=== PATIENT | male | born 1970 | race Caucasian/White ===

== ENCOUNTER 2023-10-16 00:10 | Day surgery (SDC) | payer OTHER, SELFPAY ==
[2023-10-03 09:51] VITALS: BMI 40.4
--- NOTE | 2023-10-12 09:41 | SUR.PREOP ---
Patient called regarding upcoming procedure. Reviewed preop instructions, new appointment times, and procedure prep.
--- NOTE | 2023-10-13 10:23 | SUR.PREOP ---
Patient called regarding upcoming procedure. left message with time and date of procedure and contact for questions.
[2023-10-16 07:48] VITALS: BP 143/88; PULSE 94; RESP 18; TEMP 36.1; O2SAT 97
[2023-10-16] MEDS: LACTATED RINGERS 1,000 ML 150 ML IV CONT (07:55)
--- NOTE | 2023-10-16 08:51 | P.PNAN_ITS ---
Anes - Initial Pre Proc Eval Procedure: Operation Date: 10/16/23 09:00 Proposed Procedures p Screening Colonoscopy - Raudel Munoz MD Date/Time: 10/16/23 08:51 Surgeon: Raudel Munoz MD Pre Op Diagnosis: neoplasm screening Patient Data Age: 53 Gender: M Height: 1.83 m Weight: 135.1 kg Last Vital Signs Temp 97 F L 10/16/23 07:48 Pulse 94 10/16/23 07:48 Resp 18 10/16/23 07:48 BP 143/88 H 10/16/23 07:48 Pulse Ox 97 10/16/23 07:48 O2 Del Method Room Air 10/16/23 07:48 Allergies Allergy/AdvReac Type Severity Reaction Status Date / Time No Known Allergies Allergy Verified 10/16/23 07:46 Home Medications Medication Instructions Recorded Confirmed Type semaglutide 0.25 mg or 0.5 mg (2 0.25 mg (0.368 mL) subcut WEEKLY 08/28/23 10/03/23 Rx mg/3 mL) subcutaneous pen injector #3 mL (Ozempic) trazodone 50 mg tablet 50 mg PO QHS #90 tabs 08/28/23 10/03/23 Rx Patient hx anesthesia problems: none Family hx anesthesia problems: none Results Review: All pre-operative results and documents have been reviewed as part of the pre- operative evaluation. [facility] Past Medical History Medical History Pacemaker Family History Family History (Updated 08/28/23 @ 11:30 by Jessica Wilkinson) Mother Alcoholism Father Alcoholism Carcinoma of colon Sibling Breast cancer Grandparent Thyroid condition Social History Social History (Updated 08/28/23 @ 11:31 by Jessica Wilkinson) Smoking status: Never smoker Alcohol intake: current Drinks per week: 3 Alcohol use details: bourbon to sleep Substance use: former Substance use type: marijuana Other substance usage details: edibles Lack of Transportation: No Lack of Food: Never True Current Housing: I Have Housing Concerned About Future Housing: No Difficulty Paying Gas/Electric Bills: No Difficulty Paying for Meds: No Currently Unemployed: No Education: High School Diploma/GED Difficulty w/ Childcare or Family Care: No Living arrangements: with family Spiritual care concerns: No Anes - Eval Final PreProcedure Day of Procedure 10/16/23 08:51 Patient weight: morbidly obese Heart: regular rate and rhythm Lungs: clear to auscultation Airway: Mallampati scale class II Neurological: alert and oriented Last oral intake: >/= 8 hours ASA classification: III Emergent: no Anesthetic plan: proceed Anesthesia type and monitoring: general GIVS and standard monitoring Results Review: All pre-operative results and documents have been reviewed as part of the pre- operative evaluation. Informed Consent: The patient's anesthetic plan and its attendant risks and benefits were discussed with the patient/family/POA. Questions were solicited and answers provided to the satisfaction of the patient/family/POA.
--- NOTE | 2023-10-16 09:07 | PM.HPGS ---
History of Present Illness History of Present Illness Consent: Risks, benefits, and alternatives have been discussed and questions answered. Patient agrees to proceed with procedure. Chief complaint: neoplasm screening Narrative: Wade Foster is a 53 year old male here for first screening colonoscopy Review of Systems Constitutional: Constitutional: Denies headache(s) and Denies weakness Eyes: Eyes: Denies blurry vision ENT: Reports Normal hearing present, Denies headache(s) and Denies neck pain Cardiovascular: Cardiovascular: Denies chest pain and Denies dyspnea Respiratory: Respiratory: Denies dyspnea Gastrointestinal: Gastrointestinal: Reports no additional gastrointestinal complaints Genitourinary: Genitourinary: Denies dysuria Musculoskeletal: Musculoskeletal: Denies neck pain Integumentary/Breasts: Skin/Breast: Denies dry skin Neurologic: Reports Normal hearing present, Denies headache(s) and Denies weakness Psychiatric: Psychiatric: Denies anxiety Endocrine: Endocrine: Denies change in body appearance Hematologic/Lymphatic: Hematologic/Lymphatic: Denies easy bleeding Allergic/Immunologic: Allergic/Immunologic: Denies urticaria PMFSH Past Medical History Medical History Pacemaker Family History Family History (Updated 08/28/23 @ 11:30 by Jessica Wilkinson) Mother Alcoholism Father Alcoholism Carcinoma of colon Sibling Breast cancer Grandparent Thyroid condition Social History Social History (Updated 08/28/23 @ 11:31 by Jessica Wilkinson) Smoking status: Never smoker Alcohol intake: current Drinks per week: 3 Alcohol use details: bourbon to sleep Substance use: former Substance use type: marijuana Other substance usage details: edibles Lack of Transportation: No Lack of Food: Never True Current Housing: I Have Housing Concerned About Future Housing: No Difficulty Paying Gas/Electric Bills: No Difficulty Paying for Meds: No Currently Unemployed: No Education: High School Diploma/GED Difficulty w/ Childcare or Family Care: No Living arrangements: with family Spiritual care concerns: No Meds Home Medications and Allergies Home Medications Medication Instructions Recorded Confirmed Type semaglutide 0.25 mg or 0.5 mg (2 0.25 mg (0.368 mL) subcut WEEKLY 08/28/23 10/03/23 Rx mg/3 mL) subcutaneous pen injector #3 mL (Ozempic) trazodone 50 mg tablet 50 mg PO QHS #90 tabs 08/28/23 10/03/23 Rx Allergies Allergy/AdvReac Type Severity Reaction Status Date / Time No Known Allergies Allergy Verified 10/16/23 07:46 Vital Signs Vital Signs - 24 hr 10/16/23 07:48 Temperature 97 F L Pulse Rate 94 Respiratory Rate 18 Blood Pressure 143/88 H Pulse Oximetry 97 Oxygen Delivery Room Air Exam Const: General: comfortable and no acute distress HENMT: Face/Nose/Sinus: Normal nares present Eyes: General: appearance normal, both eyes and all related structures Neck: Neck: no JVD Resp: Auscultation: clear to auscultation bilaterally Cardio: Rate: regular rate Rhythm: regular rhythm GI: Inspection: non-distended GI Palp: Yes Soft to palpation Skin: General skin exam: normal color Neuro: General: gait normal Speech: normal speech Extrem: General: normal to inspection Psych: Mental Status: mental status grossly normal Assessment and Plan Assessment and plan (1) Colon cancer screening: Code(s): Z12.11 - Encounter for screening for malignant neoplasm of colon Status: Acute Assessment and Plan: colonoscopy
[2023-10-16 09:24] VITALS: BP 115/68; PULSE 67; RESP 18; O2SAT 97
[2023-10-16 09:34] VITALS: BP 131/78; PULSE 60; RESP 18; O2SAT 98
[2023-10-16 09:44] VITALS: BP 140/78; PULSE 60; RESP 18; O2SAT 98
== END 2023-10-16 09:57 | disposition home or self-care (01) ==
PROVIDERS: Visit Provider Internal Medicine Gastroenterology
PROC: 0DJD8ZZ Inspection of Lower Intestinal Tract, Via Natural or Artificial Opening Endoscopic (ICD-10-PCS; CPT 45378; principal; 2023-10-16 09:00)
DX: Z12.11 Encounter for screening for malignant neoplasm of colon (principal); K64.8 Other hemorrhoids; K57.30 Diverticulosis of large intestine without perforation or abscess without bleeding; F12.90 Cannabis use, unspecified, uncomplicated; E66.01 Morbid (severe) obesity due to excess calories; Z68.41 Body mass index [BMI] 40.0-44.9, adult; Z95.0 Presence of cardiac pacemaker; Z80.3 Family history of malignant neoplasm of breast; Z80.0 Family history of malignant neoplasm of digestive organs
CPT/HCPCS: 45378; J2704; J7120

== ENCOUNTER 2024-10-24 16:44 | Emergency (ER) | payer BC, SELFPAY ==
[2024-10-24] VITALS (7 sets, daily range): BP systolic 138–173; BP diastolic 76–94; PULSE 61–73; RESP 13–16; TEMP 36.5; O2SAT 96–100
--- NOTE | ~2024-10-24 | XR_ITS ---
EXAMINATION: XR chest 2V 10/24/2024 17:28 INDICATION: Chest pain PROCEDURE: 2 view chest COMPARISON: No prior studies for comparison. FINDINGS: The lungs are clear. The cardiomediastinal silhouette is within normal limits. There are no pleural effusions. There is no pneumothorax suspected. Bipolar pacemaker leads in expected posit ion. IMPRESSION: 1: NO ACUTE CARDIOPULMONARY DISEASE. Reviewed, dictated and finalized at location A. ELLER MECHANIC
--- NOTE | ~2024-10-24 | CT_ITS ---
EXAMINATION: CT chest abdomen pelvis w con DATE: 10/24/2024 21:14 BOW MAKER GIFT WRAPPING INDICATION: Pancreatitis TECHNIQUE: Computed tomography (CT) of the chest, abdomen, and pelvis was performed with 100 cc Omnip aque 350 intravenous contrast. The dose-length product was 2071.80 mGy-cm. COMPARISON: None FINDINGS: CHEST CT: Heart size normal. No thoracic lymphadenopathy. No evidence for aortic aneurysm or dissection. Fatty infiltration of the liver. No endobronchial lesions. Dependent atelectasis. No suspicious pulmonary n odules or masses. No focal airspace consolidation. ABDOMEN/PELVIS CT: Fatty infiltration of the liver. The spleen, pancreas, adrenal glands are unremarkable. There are al ateral renal cysts, largest in the lower pole of the left kidney measuring 9.5 cm. Nonobstructive bow el gas pattern. Normal appendix. No lymphadenopathy. No significant vascular abnormality. No abnormal pelvic masses or fluid collections. Gallbladder is present. IMPRESSION: 1. No acute abnormality of the chest, abdomen or pelvis. Reviewed, dictated and finalized at location A. MAKER GIFT WRAPPING
--- NOTE | 2024-10-24 16:45 | ECG_ITS ---
Test Date: 2024-10-24 19:46:42 Measurements Intervals [place] Rate: 65 P: 0 AR: 0 QRS: -30 QRSD: 148 T: -13 QT: 457 QTc: 475 Interpretive Statements SINUS RHYTHM RIGHT BUNDLE BRANCH BLOCK [120+ ms QRS DURATION, UPRIGHT V1, 40+ ms S IN I/aVL/V4/V5/V6] VOLTAGE CRITERIA FOR LVH [MEETS CRITERIA IN ONE OF: R(aVL), S(V1), R(V5), R(V5/V6)+S(V1)] POSSIBLE SEPTAL MYOCARDIAL INFARCTION , OF INDETERMINATE AGE [30 ms Q WAVE IN V1/V2] Compared to ECG 10/24/2024 16:51:53 NO SIGNIFICANT CHANGES Electronically Signed On 10-25-2024 14:34:12 BRANCH OFFICER by Marshall Flores M.D.
[2024-10-24 17:11] LABS: Basophils Percent Auto 0.3 % (0.2-1.2); Eosinophils Absolute Auto 0.1 K/mm3 (0-0.3); Eosinophils Percent Auto 1.1 % (0-4.4); Hematocrit 49.6 % (42.0-52.0); Hemoglobin 16.3 g/dL (14.0-18.0); Immature Granulocyte Absolute 0.03 K/mm3 (0.00-0.031); Immature Granulocyte Percent A 0.3 % (0-0.5); Lymphocytes Absolute Auto 2.01 K/mm3 (0.9-3.2); Lymphocytes Percent Auto 22.6 % (18.3-44.2); Mean Corpuscular HGB Conc 32.9 g/dl (32-36); Mean Corpuscular Hemoglobin 28.1 pg (26-34); Mean Corpuscular Volume 85.5 fl (80-100); Mean Platelet Volume 10.2 fl (7.4-10.4); Monocytes Absolute Auto 0.5 K/mm3 (0.1-0.6); Neutrophils Absolute Auto 6.2 K/mm3 (1.3-6.7); Neutrophils Percent Auto 69.7 % (45.5-73.1); Platelet Count Result 260 k/mm3 (150-375); Red Cell Distribution Width 13.4 % (11.5-14.5); White Blood Count 8.9 K/mm3 (4.5-10.0)
--- NOTE | 2024-10-24 17:12 | ED_ITS ---
HPI - Chest Pain General Chief Complaint: Chest Pain <Lois Neville APRN - Last Filed: 10/24/24 17:15> Stated Complaint: CHEST PAIN <Lois Neville APRN - Last Filed: 10/24/24 17:15> Time Seen by Provider: 10/24/24 17:10 <Lois Neville APRN - Last Filed: 10/24/24 17:15> Focused HPI: Patient is a 54-year-old male who presents to the ER with chest pressure. He endorses lightheadedness, left hand numbness, and memory issues that started around 8:00 a.m. this morning. Patient endorses a history of a bicuspid aortic valve, depression and pacemaker. He denies any shortness of breath, abdominal pain, urinary symptoms. Patient reports he has a history of bilateral lower extremity edema. GENERAL: Well-appearing, obese, and in mild distress d/t anxiety. HEAD: Normocephalic, atraumatic. CHEST: Clear to auscultation. ?No respiratory distress. HEART: Regular rate and rhythm.? NEURO: ?Alert and oriented x3. Patient screened in triage and initial orders placed.? ?Additional care and disposition to be based upon?diagnostic testing and treatment. <Lois Neville APRN - Last Filed: 10/24/24 17:15> Source: patient <Wesley Cohen MD - Last Filed: 10/24/24 21:37> Mode of arrival: ambulatory <Wesley Cohen MD - Last Filed: 10/24/24 21:37> History of Present Illness HPI narrative: year old with a history of bicuspid aortic valve status post pacemaker secondary to possible sick sinus syndrome here with the complaints of cough chest pain bilateral arm tingling, memory fog since this a.m. patient states that felt sluggish all day. No previous history of CAD or CVA. He denies any cough or shortness of breath or abdominal pain. <Wesley Cohen MD - Last Filed: 10/24/24 21:37> MD complaint: chest pain <Wesley Cohen MD - Last Filed: 10/24/24 21:37> Onset (ago): day(s) (1) <Wesley Cohen MD - Last Filed: 10/24/24 21:37> Timing of current episode: constant <Wesley Cohen MD - Last Filed: 10/24/24 21:37> Onset: during rest <Wesley Cohen MD - Last Filed: 10/24/24 21:37> Pain radiation: other (Bilateral arm tingling) <Wesley Cohen MD - Last Filed: 10/24/24 21:37> Severity: mild <Wesley Cohen MD - Last Filed: 10/24/24 21:37> Quality: heaviness <Wesley Cohen MD - Last Filed: 10/24/24 21:37> Relieving factors: nothing <Wesley Cohen MD - Last Filed: 10/24/24 21:37> Treatment prior to arrival: none <Wesley Cohen MD - Last Filed: 10/24/24 21:37> Related Data Allergies/Adverse Reactions: Allergies Allergy/AdvReac Type Severity Reaction Status Date / Time No Known Allergies Allergy Verified 10/24/24 16:44 <Lois Neville, TONG - Last Filed: 10/24/24 17:15> Review of Systems 2 Review of Systems: All systems reviewed & are unremarkable except as noted in HPI and below <Wesley Cohen MD - Last Filed: 10/24/24 21:37> Constitutional: Constitutional: Reports no additional constitutional complaints <Wesley Cohen MD - Last Filed: 10/24/24 21:37> Eyes: Eyes: Reports no additional eye complaints <Wesley Cohen MD - Last Filed: 10/24/24 21:37> ENT: Reports system reviewed and no additional complaints, except as documented <Wesley Cohen MD - Last Filed: 10/24/24 21:37> Cardiovascular: Cardiovascular: Reports no additional cardiovascular complaints <Wesley Cohen MD - Last Filed: 10/24/24 21:37> Respiratory: Respiratory: Reports no additional respiratory complaints < Wesley Cohen MD - Last Filed: 10/24/24 21:37> Gastrointestinal: Gastrointestinal: Reports no additional gastrointestinal complaints <Wesley Cohen MD - Last Filed: 10/24/24 21:37> Musculoskeletal: Musculoskeletal: Reports no additional musculoskeletal complaints <Wesley Cohen MD - Last Filed: 10/24/24 21:37> Neurologic: Reports system reviewed and no additional complaints, except as documented <Wesley Cohen MD - Last Filed: 10/24/24 21:37> PMFSH Past Medical History Medical History: Medical History Pacemaker <Lois Neville APRN - Last Filed: 10/24/24 17:15> Family History Family History: Family History (Updated 08/28/23 @ 11:30 by Jessica Wilkinson) Mother Alcoholism Father Alcoholism Carcinoma of colon Sibling Breast cancer Grandparent Thyroid condition <Lois Neville APRN - Last Filed: 10/24/24 17:15> Social History Social History: Social History (Updated 08/28/23 @ 11:31 by Jessica Wilkinson) Smoking status: Never smoker Alcohol intake: current Drinks per week: 3 Alcohol use details: bourbon to sleep Substance use: former Substance use type: marijuana Other substance usage details: edibles Lack of Transportation: No Lack of Food: Never True Current Housing: I Have Housing Concerned About Future Housing: No Difficulty Paying Gas/Electric Bills: No Difficulty Paying for Meds: No Currently Unemployed: No Education: High School Diploma/GED Difficulty w/ Childcare or Family Care: No Living arrangements: with family Spiritual care concerns: No <Lois Neville APRN - Last Filed: 10/24/24 17:15> Exam 2 Narrative: GENERAL: Well-appearing, well-nourished, and in no acute distress. HEAD: Normocephalic, atraumatic. EYES: PERRLA and EOMI. ENT: Nares clear, no rhinorrhea or epistaxis. Mucous membranes moist. NECK: Supple. CHEST: Clear to auscultation. No respiratory distress. HEART: Regular rate and rhythm. No murmur heard. Normal peripheral pulses. ABDOMEN: Soft, nontender, nondistended, normal active bowel sounds. EXTREMITIES: Normal range of motion. No edema. SKIN: Warm, dry, no rash. NEURO: No focal deficits. Alert and oriented x3. PSYCH: Normal mood and affect. <Wesley Cohen MD - Last Filed: 10/24/24 21:37> Course Course Emergency Course: Notified patient and his about his lab work, CT findings. He is pretty much alert and in no acute distress at this time. I did advise him to continue use of medication, follow-up with his molecular genetic pathologist with <Wesley Cohen MD - Last Filed: 10/24/24 21:37> Vital Signs Vital signs: Vital Signs Temperature 36.5 C 10/24/24 16:58 Pulse Rate 73 10/24/24 16:58 Respiratory Rate 16 10/24/24 16:58 Blood Pressure 157/87 H 10/24/24 16:58 Pulse Oximetry 96 10/24/24 16:58 Oxygen Delivery Room Air 10/24/24 16:58 Temperature 36.5 C 10/24/24 16:58 Pulse Rate 73 10/24/24 16:58 Respiratory Rate 16 10/24/24 16:58 Blood Pressure 157/87 H 10/24/24 16:58 Pulse Oximetry 98 10/24/24 18:44 Oxygen Delivery Room Air 10/24/24 18:44 <Lois Neville, REFINING MACHINE OPERATOR - Last Filed: 10/24/24 17:15> Vital Signs Temperature 36.5 C 10/24/24 16:58 Pulse Rate 73 10/24/24 16:58 Respiratory Rate 16 10/24/24 16:58 Blood Pressure 157/87 H 10/24/24 16:58 Pulse Oximetry 96 10/24/24 16:58 Oxygen Delivery Room Air 10/24/24 16:58 Temperature 36.5 C 10/24/24 16:58 Pulse Rate 73 10/24/24 16:58 Respiratory Rate 16 10/24/24 16:58 Blood Pressure 157/87 H 10/24/24 16:58 Pulse Oximetry 98 10/24/24 18:44 Oxygen Delivery Room Air 10/24/24 18:44 <Wesley Cohen MD - Last Filed: 10/24/24 21:37> MDM - Chest Pain Differential Diagnosis Differential diagnosis: Likely stable angina, atypical chest pain and chest pain <Wesley Cohen MD - Last Filed: 10/24/24 21:37> Medical Records Data Attestation: I reviewed the patient's medical records. <Wesley Cohen MD - Last Filed: 10/24/24 21:37> Lab Data Attestation: I reviewed the patient's lab results. <Wesley Cohen MD - Last Filed: 10/24/24 21:37> Result diagrams: 10/24/24 16:59 10/24/24 16:59 <Lois Neville APRN - Last Filed: 10/24/24 17:15> Labs: Lab Results 10/24/24 10/24/24 Range/Units 16:59 20:00 WBC 8.9 (4.5-10.0) K/mm3 RBC 5.80 (4.6-6.20) M/mm3 Hgb 16.3 (14.0-18.0) g/dL Hct 49.6 (42.0-52.0) % MCV 85.5 (80-100) fl MCH 28.1 (26-34) pg MCHC 32.9 (32-36) g/dl RDW 13.4 (11.5-14.5) % Plt Count 260 (150-375) k/mm3 MPV 10.2 (7.4-10.4) fl Immature Gran % (Auto) 0.3 (0-0.5) % Neut % (Auto) 69.7 (45.5-73.1) % Lymph % (Auto) 22.6 (18.3-44.2) % [place] % (Auto) 6.0 (2.6-8.5) % Eos % (Auto) 1.1 (0-4.4) % Baso % (Auto) 0.3 (0.2-1.2) % Lymph # (Auto) 2.01 (0.9-3.2) K/mm3 [place] # (Auto) 0.5 (0.1-0.6) K/mm3 Eos # (Auto) 0.1 (0-0.3) K/mm3 Baso # (Auto) 0.0 (0.0-0.1) K/mm3 Abs Immat Gran (auto) 0.03 (0.00-0.031) K/mm3 Absolute Neuts (auto) 6.2 (1.3-6.7) K/mm3 Absolute Nucleated RBC 0.000 (0.0-0.012) K/mm3 Nucleated RBC % 0.0 (0.0-0.2) % PT 14.1 (11.1-14.7) Seconds INR 1.0 APTT 27.4 (22.3-36.8) Seconds Sodium 138 (137-145) mmol/L Potassium 4.0 (3.4-5.0) mmol/L Chloride 103 (98-107) mmol/L Carbon Dioxide 26 (22-30) mmol/L Anion Gap 9 (4-12) mmol/L BUN 14 (9-20) mg/dL Creatinine 0.77 (0.7-1.3) mg/dL Estim Creat Clear Calc 131 ml/min Estimated GFR > 60 (59 - ) Glucose 89 (65-110) mg/dL Calcium 9.5 (8.4-10.2) mg/dL Total Bilirubin 1.1 (0.2-1.3) mg/dL AST 26 (17-59) U/L ALT 24 (6-50) U/L Alkaline Phosphatase 60 (38-126) U/L Troponin I < 0.012 < 0.012 (0.000-0.034) ng/mL NT-Pro-B Natriuret Pep 100 (19.9-100) pg/mL Total Protein 7.0 (6.3-8.2) g/dL Albumin 4.4 (3.5-5.1) g/dL Lipase 844 H (23-300) U/L <Lois Neville, REFINING MACHINE OPERATOR - Last Filed: 10/24/24 17:15> Lab Results 10/24/24 10/24/24 Range/Units 16:59 20:00 WBC 8.9 (4.5-10.0) K/mm3 RBC 5.80 (4.6-6.20) M/mm3 Hgb 16.3 (14.0-18.0) g/dL Hct 49.6 (42.0-52.0) % MCV 85.5 (80-100) fl MCH 28.1 (26-34) pg MCHC 32.9 (32-36) g/dl RDW 13.4 (11.5-14.5) % Plt Count 260 (150-375) k/mm3 MPV 10.2 (7.4-10.4) fl Immature Gran % (Auto) 0.3 (0-0.5) % Neut % (Auto) 69.7 (45.5-73.1) % Lymph % (Auto) 22.6 (18.3-44.2) % [place] % (Auto) 6.0 (2.6-8.5) % Eos % (Auto) 1.1 (0-4.4) % Baso % (Auto) 0.3 (0.2-1.2) % Lymph # (Auto) 2.01 (0.9-3.2) K/mm3 [place] # (Auto) 0.5 (0.1-0.6) K/mm3 Eos # (Auto) 0.1 (0-0.3) K/mm3 Baso # (Auto) 0.0 (0.0-0.1) K/mm3 Abs Immat Gran (auto) 0.03 (0.00-0.031) K/mm3 Absolute Neuts (auto) 6.2 (1.3-6.7) K/mm3 Absolute Nucleated RBC 0.000 (0.0-0.012) K/mm3 Nucleated RBC % 0.0 (0.0-0.2) % PT 14.1 (11.1-14.7) Seconds INR 1.0 APTT 27.4 (22.3-36.8) Seconds Sodium 138 (137-145) mmol/L Potassium 4.0 (3.4-5.0) mmol/L Chloride 103 (98-107) mmol/L Carbon Dioxide 26 (22-30) mmol/L Anion Gap 9 (4-12) mmol/L BUN 14 (9-20) mg/dL Creatinine 0.77 (0.7-1.3) mg/dL Estim Creat Clear Calc 131 ml/min Estimated GFR > 60 (59 - ) Glucose 89 (65-110) mg/dL Calcium 9.5 (8.4-10.2) mg/dL Total Bilirubin 1.1 (0.2-1.3) mg/dL AST 26 (17-59) U/L ALT 24 (6-50) U/L Alkaline Phosphatase 60 (38-126) U/L Troponin I < 0.012 < 0.012 (0.000-0.034) ng/mL NT-Pro-B Natriuret Pep 100 (19.9-100) pg/mL Total Protein 7.0 (6.3-8.2) g/dL Albumin 4.4 (3.5-5.1) g/dL Lipase 844 H (23-300) U/L <Wesley Cohen MD - Last Filed: 10/24/24 21:37> Imaging Data Radiologist's impression: ITS Impressions Chest X-Ray 10/24/24 17:32 IMPRESSION: 1: NO ACUTE CARDIOPULMONARY DISEASE. Chest/Abdomen/Pelvis CT 10/24/24 21:14 IMPRESSION: 1. No acute abnormality of the chest, abdomen or pelvis. <Wesley Cohen MD - Last Filed: 10/24/24 21:37> ECG Data EKG #1: ECG completion date: 10/24/24 <Wesley Cohen MD - Last Filed: 10/24/24 21:37> ECG completion time: 16:51 <Wesley Cohen MD - Last Filed: 10/24/24 21:37> EKG Interpretation: normal rate (66), sinus rhythm, no ectopy, left axis and no acute changes <Wesley Cohen MD - Last Filed: 10/24/24 21:37> EKG #2: EKG Interpretation: normal rate (65), no ectopy, normal QRS, NL axis and no acute changes <Wesley Cohen MD - Last Filed: 10/24/24 21:37> Discharge Plan Discharge Clinical Impression: Anxiety Chest pain Qualifiers: Chest pain type: unspecified Qualified Code(s): R07.9 - Chest pain, unspecified <Lois Neville APRN - Last Filed: 10/24/24 17:15> Patient Disposition: Home, Self-Care <Lois Neville APRN - Last Filed: 10/24/24 17:15> Condition: Stable <Lois Neville APRN - Last Filed: 10/24/24 17:15> Instructions: Chest Pain (ED) <Lois Neville APRN - Last Filed: 10/24/24 17:15> Additional Instructions: Continue home medications recommended to follow with the primary doctor for further evaluation <Lois Neville APRN - Last Filed: 10/24/24 17:15> Patient Language: Romanian <Lois Neville APRN - Last Filed: 10/24/24 17:15> Prescriptions: No Action Ozempic 0.25 mg or 0.5 mg (2 mg/3 mL) pen injector 0.25 mg subcut WEEKLY Qty: 3 0RF Rx Instructions: for 4 weeks trazodone 50 mg tablet 50 mg PO QHS Qty: 90 2RF <Lois Neville APRN - Last Filed: 10/24/24 17:15> Follow-up/Referrals: Goran Rob MD [Physician] - UNKNOWN,DOCTOR [Primary Care Provider] - <Lois Neville APRN - Last Filed: 10/24/24 17:15> Time of Disposition: 21:32 <Lois Neville APRN - Last Filed: 10/24/24 17:15> 21:32 <Wesley Cohen MD - Last Filed: 10/24/24 21:37> Quality HEART score for chest pain patients History: slightly suspicious <Wesley Cohen MD - Last Filed: 10/24/24 21:37> ECG: non specific repolarization disturbance/LBTB/PM <Wesley Cohen MD - Last Filed: 10/24/24 21:37> Age: > 45 and < 65 years <Wesley Cohen MD - Last Filed: 10/24/24 21:37> Risk factors: no risk factors known <Wesley Cohen MD - Last Filed: 10/24/24 21:37> Troponin: > or = to 3x normal limit <Wesley Cohen MD - Last Filed: 10/24/24 21:37> Heart score: 4 <Wesley Cohen MD - Last Filed: 10/24/24 21:37>
[2024-10-24 17:21] LABS: Partial Thromboplastin Time 27.4 Seconds (22.3-36.8); Prothrombin Time 14.1 Seconds (11.1-14.7)
[2024-10-24 17:22] LABS: Alanine Aminotransferase 24 U/L (6-50); Albumin Level 4.4 g/dL (3.5-5.1); Alkaline Phosphatase 60 U/L (38-126); Anion Gap 9 mmol/L (4-12); Aspartate Amino Transferase 26 U/L (17-59); Bilirubin,Total 1.1 mg/dL (0.2-1.3); Blood Urea Nitrogen 14 mg/dL (9-20); Calcium 9.5 mg/dL (8.4-10.2); Carbon Dioxide 26 mmol/L (22-30); Chloride 103 mmol/L (98-107); Estimated CRCL calculation 131 ml/min; Estimated Glomerular Filt Rate > 60; Glucose 89 mg/dL (65-110); Lipase 844 U/L (23-300); Sodium 138 mmol/L (137-145)
[2024-10-24 17:34] LABS: Troponin I < 0.012 ng/mL (0.000-0.034)
[2024-10-24 17:56] LABS: NT Pro B Type Natriuretic Pept 100 pg/mL (19.9-100)
[2024-10-24] MEDS: ASPIRIN 81 MG CHEWABLE TABLET 324 MG PO (18:55)
--- NOTE | 2024-10-24 19:42 | ECG_ITS ---
Test Date: 2024-10-24 16:51:53 Measurements Intervals [place] Rate: 66 P: -13 ME: 198 QRS: -40 QRSD: 153 T: -4 QT: 441 QTc: 463 Interpretive Statements SINUS RHYTHM MARKED LEFT AXIS DEVIATION [QRS AXIS < -30] RIGHT BUNDLE BRANCH BLOCK VOLTAGE CRITERIA FOR LVH [MEETS CRITERIA IN ONE OF: R(aVL), S(V1), R(V5), R(V5/V6)+S(V1)] POSSIBLE SEPTAL MYOCARDIAL INFARCTION , OF INDETERMINATE AGE [30 ms Q WAVE IN V1/V2] POSSIBLE LATERAL MYOCARDIAL INFARCTION , PROBABLY OLD [30 ms Q WAVE IN I/aVL/V5/V6] No previous ECG available for comparison Electronically Signed On 10-25-2024 14:26:08 CARDROOM MANAGER by Marshall Flores M.D.
[2024-10-24 20:30] LABS: Troponin I < 0.012 ng/mL (0.000-0.034)
== END 2024-10-24 21:52 | disposition home or self-care (01) ==
PROVIDERS: Emergency Medicine; Registered Nurse; Emergency Provider Family Medicine
DX: R07.89 Other chest pain (principal); F41.9 Anxiety disorder, unspecified; E66.9 Obesity, unspecified; Z68.38 Body mass index [BMI] 38.0-38.9, adult; F32.A Depression, unspecified; Q23.81 Bicuspid aortic valve; Z95.0 Presence of cardiac pacemaker; Z79.899 Other long term (current) drug therapy; Z79.85 Long-term (current) use of injectable non-insulin antidiabetic drugs; I45.10 Unspecified right bundle-branch block; R94.31 Abnormal electrocardiogram [ECG] [EKG]
CPT/HCPCS: 36415; 71046; 71260; 74177; 80053; 83690; 83880; 84484; 85025; 85610; 85730; 93005; 99284; A9270; Q9967